=== PATIENT | female | born 1990 | race Caucasian/White ===

== ENCOUNTER 2017-10-01 15:49 | Emergency (ER) | payer BC ==
[2017-10-01] MEDS ORDERED: ISOVUE-370 76%-LOCM 1 ML ONE (16:23)
--- NOTE | 2017-10-01 16:26 | RAD ---
CHEST ONE VIEW: 10/01/17 HISTORY: Chest pain. Dyspnea. FINDINGS: The cardiac silhouette and pulmonary vasculature are unremarkable. Mediastinum is midline. No conflue nt air space consolidation or evidence of pneumothorax. environmental monitoring specialist leads overlie the chest. IMPRESSION: No active cardiopulmonary abnormalities are demonstrated. POS: [facility]
[2017-10-01 16:35] LABS: #Basophils 0.1 thou/uL (0.0-0.2); #Eosinphils 0.3 thou/uL (0.0-0.7); #Lymphocytes 2.7 thou/uL (1.20-3.40); #Monocytes 0.8 thou/uL (0.11-0.59); #Neutrophils 4.4 thou/uL (1.40-6.50); %Basophils 1.3 % (0.0-1.0); %Eosinophils 4.1 % (0.0-10.0); %Lymphocytes 32.4 % (21.0-51.0); %Neutrophils 53.2 % (42.0-75.0); Hemoglobin 14.8 g/dL (12.0-16.0); Mean Corpuscular HGB CONC 34.4 g/dL (32.0-36.0); Mean Corpuscular Hemoglobin 31.7 pg (27.0-31.0); Mean Corpuscular Volume 92.2 fl (81.0-99.0); Mean Platelet Volume 9.1 fL (7.4-10.4); Platelet Count 160 thou/uL (130-400); RBC Distribution Width 12.5 % (11.5-14.5); Red Blood Cell (RBC) Count 4.67 mill/uL (4.20-5.40); White Blood Cell (WBC) Count 8.3 thou/uL (4.8-10.8)
[2017-10-01 16:47] LABS: ALT (SGPT) 34 U/L (8-55); AST (SGOT) 21 U/L (5-34); Albumin 4.7 g/dL (3.5-5.0); Alkaline Phosphatase 58 U/L (40-150); Anion Gap 14 mmol/L (10-20); BUN (Urea Nitrogen) 12 mg/dL (7.0-18.7); CK (CPK) 66 U/L (29-168); Calc. Creatinine Clearance 0 mL/min (70-130); Calcium 9.7 mg/dL (7.8-10.44); Carbon Dioxide 18 mmol/L (22-29); Chloride 112 mmol/L (98-107); Estimated GFR-MDRD Greater than 90; Globulin 2.7 g/dL (2.4-3.5); Glucose 104 mg/dL (70-105); Potassium 4.3 mmol/L (3.5-5.1); Protein, Total 7.4 g/dL (6.0-8.3); Sodium 140 mmol/L (136-145)
[2017-10-01 16:52] LABS: CKMB 0.5 ng/mL (0-6.6); Troponin I Less than 0.010 ng/mL (< 0.028)
[2017-10-01 17:53] LABS: Pregnancy Test - Urine (BHCG) Negative (Negative); Pregu Control Background? CLEAR/WHITE (CLR/WHITE); Pregu Control Bar Appear? YES (CONTROL BAR); Specific Gravity 1.022 (1.002-1.036)
--- NOTE | 2017-10-01 19:33 | CT ---
CT ANGIOGRAM OF THE CHEST: 10/01/17 HISTORY: Chest pain. Shortness of breath, x1 week. COMPARISON: None. TECHNIQUE: CT angiogram of the chest is performed in the axial plane. Three dimensional reformatted images are s ubmitted for interpretation. FINDINGS: There are diffuse ground glass opacities throughout the lung parenchyma suggesting volume overload/ed enriqueta. No consolidation. No pleural effusion. No pneumothorax. Trachea and central bronchi are patent. No mediastinal mass, lymphadenopathy or hematoma. Heart size is within normal limits. No pericardial fluid. Limited evaluation of the aorta due to timing of bolus. Visualized upper solid organs are josseline sly unremarkable. three are no lytic or blastic lesions in the osseous structures. Adequate contrast opacification of the pulmonary arterial system to the level of the segmental arteri es. No filling defect to suggest thromboembolism. IMPRESSION: 1. No evidence of pulmonary artery embolism to the level of the segmental arteries. 2. Diffuse ground glass opacities due to pulmonary edema. POS: [facility]
== END 2017-10-01 19:50 | disposition home or self-care (01) ==
LOC: ERS 15:49
DX: R00.2 Palpitations (principal); R07.9 Chest pain, unspecified; F17.210 Nicotine dependence, cigarettes, uncomplicated; Z79.899 Other long term (current) drug therapy; Z79.82 Long term (current) use of aspirin
CPT/HCPCS: 71045; 71275; 80053; 81025; 82550; 82553; 83880; 84484; 85025; 93005